=== PATIENT | female | born 1990 | race African-American/Black ===

== ENCOUNTER 2023-04-03 04:15 | Emergency (ER) | payer MEDICAID ==
[~2023-04-03] VITALS: Ht 160 cm; Wt 59.0 kg
[2023-04-03 04:25] VITALS: BP 148/79
== END 2023-04-03 06:13 | disposition home or self-care (01) ==
LOC: ER 04:15
DX: R51.9 Headache, unspecified (principal); R20.8 Other disturbances of skin sensation; F41.9 Anxiety disorder, unspecified; I10 Essential (primary) hypertension
CPT/HCPCS: 99283